=== PATIENT | male | born 1970 | race African-American/Black ===

== ENCOUNTER 2025-03-10 17:01 | Emergency (ER) | payer MEDICAID ==
[~2025-03-10] VITALS: Ht 177.8 cm; Wt 82.0 kg
[2025-03-10 17:03] VITALS: O2SAT 99
[2025-03-10] MEDS: SODIUM CHLORIDE 0.9% 1,000 ML IV ONE ×2 (17:33→20:15)
[2025-03-10 17:50] LABS: BASOPHILS % 0.6 % (0.0-2.0); EOSINOPHILS % 1.9 % (0.0-5.0); HEMATOCRIT. 33.6 % (42.0-52.0); HEMOGLOBIN. 10.9 g/dL (14.0-18.0); LYMPHOCYTES % 21.3 % (20.0-50.0); MEAN PLATELET VOLUME 7.3 fl (7.4-10.4); MONOCYTES % 10.6 % (2.0-8.0); NEUTROPHILS % 65.6 % (40.0-76.0); PLATELET 304 x1000/uL (130-400); RED BLOOD CELL COUNT 3.76 mill/uL (4.7-6.1); RED CELL DISTRIBUTION WIDTH 14.6 % (11.6-14.6)
[2025-03-10 18:02] LABS: CREATININE 0.7 mg/dL (0.6-1.3); UREA NITROGEN BLOOD 15 mg/dL (9-23)
[2025-03-10 18:03] LABS: ETHANOL BLOOD < 10 mg/dL (<10)
[2025-03-10 20:03] LABS: T4 FREE 0.94 ng/dL (0.89-1.76)
[2025-03-10] MEDS: DILTIAZEM HCL 5MG/ML 5ML VIAL IV ONE (20:14)
[2025-03-10 20:39] LABS: TROPONIN I HIGH SENSITIVITY 56 ng/L (3.0-53)
[2025-03-10 20:55] VITALS: BP 129/87; PULSE 84; RESP 15; TEMP 36.8; O2SAT 99
== END 2025-03-10 23:10 | disposition short-term general hospital (02) ==
LOC: ER 17:01 → EDBEDREQTM 22:10 → EDBEDREQ 22:10 → ER 23:10 → CMPBEDREQ 03-11 10:22
DX: I48.92 Unspecified atrial flutter (principal); I21.4 Non-ST elevation (NSTEMI) myocardial infarction; I11.0 Hypertensive heart disease with heart failure; F17.200 Nicotine dependence, unspecified, uncomplicated
CPT/HCPCS: 80048; 80320; 83880; 84439; 83735; 84443; 85025; 84484; 36415; 71045; 93005; 96361; 96374; 99291; J3490; J7030; A4606; G0480

== ENCOUNTER 2025-05-25 08:52 | Inpatient (IN) | payer MEDICAID ==
[~2025-05-25] VITALS: Ht 170.2 cm; Wt 72.6 kg
[2025-05-25 08:58] VITALS: O2SAT 98
[2025-05-25 09:26] LABS: HEMATOCRIT. 30.6 % (42.0-52.0); HEMOGLOBIN. 9.8 g/dL (14.0-18.0); MEAN PLATELET VOLUME 6.7 fl (7.4-10.4); PLATELET 558 x1000/uL (130-400); RED BLOOD CELL COUNT 3.77 mill/uL (4.7-6.1); RED CELL DISTRIBUTION WIDTH 18.5 % (11.6-14.6)
[2025-05-25] MEDS: DILTIAZEM HCL 120MG CAPSULE ER 24HR PO ONE (09:33)
[2025-05-25 09:51] LABS: CREATININE 0.6 mg/dL (0.6-1.3); UREA NITROGEN BLOOD 6 mg/dL (9-23)
[2025-05-25 09:52] LABS: TROPONIN I HIGH SENSITIVITY 5 ng/L (3.0-53)
[2025-05-25 10:30] LABS: BAND% 1.0 % (1.0-6.0); BASOPHILS % MANUAL 1.0 % (0.0-2.0); LYMPHOCYTES % MANUAL 13.0 % (20.0-50.0); MONOCYTES % MANUAL 8.0 % (2.0-8.0); NEUTROPHILS % MANUAL 77.0 % (45.0-75.0); NUCLEATED RED BLOOD CELLS 1 /100 WBC
[2025-05-25 10:31] LABS: PLATELET ESTIMATE INCREASED
[2025-05-25] MEDS ORDERED: DILTIAZEM HCL 5MG/ML 5ML VIAL IV ONE (10:45)
[2025-05-25] MEDS: METOCLOPRAMIDE HCL 10MG/2ML VIAL IV ONE (10:51)
[2025-05-25] MEDS: ACETAMINOPHEN 500MG TABLET PO ONE (10:51)
[2025-05-25] MEDS: DILTIAZEM HCL 5MG/ML 5ML VIAL IV SCH (10:51)
[2025-05-25] MEDS: MAGNESIUM 2 G PREMIX 50 ML IV ONE (12:05)
[2025-05-25] MEDS: KETOROLAC 30MG/ML VIAL IV NR (12:06)
[2025-05-25 12:55] VITALS: BP 112/79; PULSE 89; RESP 18; TEMP 33.1932; TEMP 33.2; O2SAT 97
[2025-05-25] MEDS ORDERED: ONDANSETRON HCL 4MG/2ML INJ IV PRN (13:15)
[2025-05-25] MEDS ORDERED: DIPHENHYDRAMINE 50MG/ML VIAL IV PRN (13:15)
[2025-05-25] MEDS ORDERED: IPRATROPIUM/ALBUTEROL 0.5-3(2.5)MG/3ML NEB HHN PRN (13:15)
[2025-05-25] MEDS ORDERED: CLONIDINE 0.1MG TABLET PO PRN (13:15)
[2025-05-25] MEDS ORDERED: PNEUMOCOCCAL 20-VAL CONJ-DIP CRM 0.5ML IM ONE (13:45)
[2025-05-25] MEDS ORDERED: INFLUENZA VACCINE 05/PF 0.5 ML SYRINGE IM ONE (13:45)
[2025-05-25] MEDS: ENOXAPARIN 40MG/0.4ML SYR SUBCUT SCH (15:40)
[2025-05-25 16:00] VITALS: BP 124/93; PULSE 91; RESP 18; TEMP 36.3; O2SAT 98
[2025-05-25] MEDS ORDERED: CLON0.1T PO (18:31)
[2025-05-25] MEDS ORDERED: ACET-2708 MT (18:31)
[2025-05-25 20:00] VITALS: BP 137/95; PULSE 93; RESP 18; TEMP 36.4; O2SAT 96
[2025-05-26 04:00] VITALS: BP 150/101; PULSE 97; RESP 20; TEMP 36.2; O2SAT 96
[2025-05-26 05:00] VITALS: BP 138/78
[2025-05-26 07:14] LABS: BASOPHILS % 1.2 % (0.0-2.0); EOSINOPHILS % 0.9 % (0.0-5.0); HEMATOCRIT. 29.3 % (42.0-52.0); HEMOGLOBIN. 9.6 g/dL (14.0-18.0); LYMPHOCYTES % 12.6 % (20.0-50.0); MEAN PLATELET VOLUME 7.2 fl (7.4-10.4); MONOCYTES % 10.7 % (2.0-8.0); NEUTROPHILS % 74.6 % (40.0-76.0); PLATELET 531 x1000/uL (130-400); RED BLOOD CELL COUNT 3.65 mill/uL (4.7-6.1); RED CELL DISTRIBUTION WIDTH 18.1 % (11.6-14.6)
[2025-05-26 07:19] LABS: CREATININE 0.6 mg/dL (0.6-1.3)
[2025-05-26 07:20] LABS: UREA NITROGEN BLOOD 13 mg/dL (9-23)
[2025-05-26 08:00] VITALS: BP 148/104; PULSE 103; RESP 20; TEMP 36.4; O2SAT 98
[2025-05-26] MEDS: AMLODIPINE 5MG TABLET PO SCH ×2 (10:17→20:46)
[2025-05-26] MEDS: IBUPROFEN 400MG TABLET PO PRN (11:04)
[2025-05-26 12:00] VITALS: BP 129/96; PULSE 96; RESP 20; TEMP 36.6; O2SAT 98
[2025-05-26 16:00] VITALS: BP 136/92; PULSE 95; RESP 22; TEMP 36.6; O2SAT 95
[2025-05-26 20:00] VITALS: BP 115/77; PULSE 92; RESP 18; TEMP 36.6; O2SAT 97
[2025-05-27] VITALS: BP 134/83; PULSE 95; RESP 20; TEMP 36.1; O2SAT 99
[2025-05-27 04:00] VITALS: BP 131/83; PULSE 95; RESP 18; TEMP 36.3; O2SAT 100
[2025-05-27 07:53] LABS: BASOPHILS % 1.0 % (0.0-2.0); EOSINOPHILS % 1.3 % (0.0-5.0); HEMATOCRIT. 27.4 % (42.0-52.0); HEMOGLOBIN. 9.0 g/dL (14.0-18.0); LYMPHOCYTES % 12.5 % (20.0-50.0); MEAN PLATELET VOLUME 6.6 fl (7.4-10.4); MONOCYTES % 12.2 % (2.0-8.0); NEUTROPHILS % 73.0 % (40.0-76.0); PLATELET 526 x1000/uL (130-400); RED BLOOD CELL COUNT 3.43 mill/uL (4.7-6.1); RED CELL DISTRIBUTION WIDTH 18.5 % (11.6-14.6)
[2025-05-27 08:05] LABS: TROPONIN I HIGH SENSITIVITY 4 ng/L (3.0-53)
[2025-05-27 08:06] LABS: CREATININE 0.6 mg/dL (0.6-1.3); TRIGLYCERIDE 42 mg/dL (0-150)
[2025-05-27 08:07] LABS: LDL CHOLESTEROL 149 mg/dL (5-100); UREA NITROGEN BLOOD 13 mg/dL (9-23)
[2025-05-27 08:54] VITALS: BP 146/94; PULSE 92; RESP 18; TEMP 36.4; O2SAT 98
[2025-05-27 12:00] VITALS: BP 136/98; PULSE 86; RESP 20; TEMP 36.6; O2SAT 98
[2025-05-27] MEDS: CLONIDINE 0.1MG TABLET PO SCH (13:25)
[2025-05-27 16:00] VITALS: BP 132/80; PULSE 95; RESP 20; TEMP 36.4; O2SAT 98
[2025-05-27] MEDS ORDERED: AMLO5TAB88 PO ×2 (16:00→18:26)
[2025-05-27] MEDS ORDERED: CLON0.1T PO (16:00)
[2025-05-27] MEDS ORDERED: FURO40TA5 MT (18:26)
[2025-05-27] MEDS ORDERED: LOSA25TA26 MT (18:26)
[2025-05-27] MEDS ORDERED: COR3 MT (18:26)
[2025-05-27 20:00] VITALS: BP 138/85; PULSE 85; RESP 18; TEMP 36.6; O2SAT 96
[2025-05-27] MEDS: ZOLPIDEM TARTRATE 5MG TABLET PO PRN (21:07)
[2025-05-28 04:00] VITALS: BP 136/99; PULSE 84; RESP 18; TEMP 36.8; O2SAT 95
[2025-05-28] MEDS ORDERED: ATOR20TA65 MT ×2 (08:26→12:57)
[2025-05-28 11:22] VITALS: BP 133/92; PULSE 83; RESP 19; TEMP 98.1
[2025-05-28 12:00] VITALS: BP 121/81; PULSE 81; RESP 16; TEMP 36.6; O2SAT 96
[2025-05-28] MEDS ORDERED: FURO40TA5 MT (12:57)
[2025-05-28] MEDS ORDERED: COR3 MT (12:57)
[2025-05-28] MEDS ORDERED: LOSA25TA26 MT (12:57)
[2025-05-28] MEDS ORDERED: AMLO5TAB88 PO (12:57)
== END 2025-05-28 14:56 | disposition home or self-care (01) | DRG 199 ==
LOC: ER 08:52 → 6WST 11:27 → EDBEDREQTM 11:32 → EDBEDREQ 11:32 → ENRESERV 11:59 → 6WST 15:46 → 7EST 05-27
PROVIDERS: ADMIT Internal Medicine; ATTEND Internal Medicine
DX: I16.0 Hypertensive urgency (principal); I48.92 Unspecified atrial flutter; I50.40 Unspecified combined systolic (congestive) and diastolic (congestive) heart failure; I11.0 Hypertensive heart disease with heart failure; F17.210 Nicotine dependence, cigarettes, uncomplicated; Z79.899 Other long term (current) drug therapy; Z71.6 Tobacco abuse counseling
CPT/HCPCS: 36415; 71045; 80048; 80061; 82962; 83735; 84443; 84484; 85025; 93005; 93306; 93970; 96374; 96375; 99291; A4606; G0378; J1650; J1885; J2765; J3475; J3490